=== PATIENT | male | born 1990 | race African-American/Black ===

== ENCOUNTER → 2019-10-10 | Outpatient (CLI) | payer OTHER, MEDICAID ==
--- NOTE | 2019-10-10 15:33 | KCIC ---
2 view study of the right hip Clinical indications: Unspecified leg pain. Patient mentally disabled. FINDINGS: No acute fracture or dislocation or lytic process is seen. No arthritic change is evident. Metallic foreign bodies are seen in the region of the right lower quadrant of the abdomen. These most likely are outside the patient since they are not seen on the AP view of the left hip performed on the same day. IMPRESSION: No acute osseous abnormality. Electronically signed by: Manuel Islas MD (10/10/2019 3:30 PM) [facility] [place]
--- NOTE | 2019-10-10 15:34 | KCIC ---
2 view study of the left hip Clinical indications: Unspecified leg pain. Patient is mentally disabled. FINDINGS: No acute fracture or dislocation or lytic process is seen. No significant arthritic change is seen. IMPRESSION: No acute osseous abnormality. Electronically signed by: Manuel Islas MD (10/10/2019 3:31 PM) [facility] [place]
--- NOTE | 2019-10-10 15:37 | KCIC ---
3 view study of both knees Clinical indications: Unspecified bilateral leg pain. Patient is mentally disabled. Right knee: No acute fracture or dislocation or lytic process is seen. There is mild degenerative spurring of the lateral tibial femoral joint compartment without joint space narrowing. No significant swelling of the suprapatella bursa is seen to indicate a joint effusion radiographically. Left knee: No acute fracture or dislocation or lytic process is seen. No significant arthritic change is seen. No significant swelling of the suprapatella bursa is seen to indicate a joint effusion radiographically. IMPRESSION: Mild degenerative spurring of the lateral tibiofemoral joint compartment of the right knee without joint space narrowing. No significant abnormality of either knee is seen otherwise. Electronically signed by: Manuel Islas MD (10/10/2019 3:34 PM) [facility] [place]
== END ==
LOC: KCIC 10:35
PROVIDERS: ATTEND Family Medicine
DX: M76.892 Other specified enthesopathies of left lower limb, excluding foot (principal); M76.891 Other specified enthesopathies of right lower limb, excluding foot
CPT/HCPCS: 73502; 73562